=== PATIENT | male | born 1970 | race Caucasian/White ===

== ENCOUNTER 2018-03-18 10:52 | Emergency (ER) | payer OTHER ==
[~2018-03-18] VITALS: Ht 180.3 cm; Wt 99.8 kg
[~2018-03-18 10:52] MED LIST: IBUPROFEN 800800 MG PO; LORTAB 5 MG/5001 TAB PO; TRAMADOL 50 MG50 MG PO
[2018-03-18 12:15] VITALS: BP 128/86
== END 2018-03-18 12:16 | disposition home or self-care (01) ==
LOC: M.ERS 10:52
DX: S90.112A Contusion of left great toe without damage to nail, initial encounter (principal); W22.8XXA Striking against or struck by other objects, initial encounter; Y93.89 Activity, other specified; Y92.89 Other specified places as the place of occurrence of the external cause; Y99.8 Other external cause status